=== PATIENT | male | born 1985 | race Caucasian/White ===

== ENCOUNTER 2024-09-26 07:29 | Emergency (ER) | payer SELFPAY ==
--- NOTE | ~2024-09-26 | CT_ITS ---
EXAMINATION: CT ANGIOGRAM CHEST CLINICAL INFORMATION: Chest pain. Evaluate for PE. COMPARISON: None available. TECHNIQUE: Multiple axial images were obtained through the chest after the administration of 65 mL of Omnipaque 350 intravenous contrast. Extensive vascular post-processing including two-dimensional and three-dimensional reformatted images were created and reviewed on an independent workstation. This CT examination was performed using dose optimization techniques as appropriate, variously including the following: *Automated exposure control *Adjustment of mA and/or kV according to patient size (this includes techniques or standardized protocols for targeted exams where dose is matched to indication/reason for exam; i.e. extremities or head) *Use of iterative reconstruction technique DLP: 346 mGy-cm FINDINGS: Vascular: There is good opacification of pulmonary artery and its branches.Intraluminal filling defect or narrowing. The thoracic aorta is of normal caliber without aneurysm or dissection. There is a normal three-vessel branching of the aortic arch with widely patent origins. Heart size is normal. No pericardial effusion seen. No coronary artery calcifications. Nonvascular: The lungs are well-expanded without any acute pneumonic consolidation, atelectasis or groundglass nodules. There is no pleural effusion, pneumothorax or thickening. The axilla and chest wall is unremarkable. Visualized liver, spleen, pancreas and bilateral adrenal glands are unremarkable. No radiopaque gallstones seen. There is a 2 cm hypodense lesion in left hepatic lobe. Otherwise rest the liver, spleen and adrenal glands are unremarkable.. CT/CT angio chest PE protocol IMPRESSION: No evidence of PE. No evidence of aortic aneurysm or dissection. The lungs are clear. Fleischner guidelines were followed. Electronically signed by: Rajinder Jauregui MD 09/26/2024 10:25 AM [facility]
--- NOTE | 2024-09-26 07:30 | ECG_ITS ---
Test Reason : CHEST PAIN Blood Pressure : / mmHG Vent. Rate : 076 BPM Atrial Rate : 076 BPM P-R Int : 174 ms QRS Dur : 088 ms QT Int : 386 ms P-R-T Axes : 054 069 063 degrees QTc Int : 434 ms Normal sinus rhythm Nonspecific T wave abnormality Abnormal ECG No previous ECGs available Referred By: Generic ED Physician Electronically Signed By:JONES FLAHERTY MD
[2024-09-26 07:42] VITALS: BP 122/86; PULSE 77; RESP 18; TEMP 36.4; O2SAT 100; BMI 28.3
[2024-09-26 08:00] LABS: MANUAL DIFF FLAG NO
[2024-09-26 08:01] LABS: Basophils Percent Auto 0.5 % (0-2); Eosinophils Absolute Auto 0.1 X10*3/uL (0.0-0.4); Eosinophils Percent Auto 1.2 % (0-4); Hematocrit 41.5 % (42.0-52.0); Imm Gran Abs Auto 0.02 X10*3/uL (0.00-0.03); Imm Gran Pct Auto 0.2 % (0.0-0.4); Lymphocytes Absolute Auto 2.7 X10*3/uL (1.2-4.9); Lymphocytes Percent Auto 32.6 % (20-40); Mean Corpuscular HGB Conc 36.1 g/dl (31.0-36.0); Mean Corpuscular Hemoglobin 30.4 pg (27.0-33.0); Mean Platelet Volume 10.8 fL (9.4-12.4); Monocytes Absolute Auto 0.8 X10*3/uL (0.1-1.2); Monocytes Percent Auto 9.6 % (2-11); Neutrophils Absolute Auto 4.6 x10*3/uL (2.0-8.3); Neutrophils Percent Auto 55.9 % (45-73); Platelet Count 244 X10*3/uL (160-400); Red Blood Count 4.94 X10*6/uL (4.60-5.80); Red Cell Distribution Width 12.6 % (11.0-16.0); White Blood Count 8.1 X10*3/uL (4.8-10.8)
--- NOTE | 2024-09-26 08:14 | ED.CHESTPAIN ---
HPI - Chest Pain General Chief Complaint: Chest Pain Stated Complaint: Chest pain Time Seen by Provider: 09/26/24 08:03 Source: patient Mode of arrival: ambulatory Limitations: no limitations History of Present Illness HPI narrative: This is a 38 years old presented to the emergency department with a chief complaint of chest pain. He is originally from [place] he is here locally for work. He is a smoker use marijuana occasionally he does not take any prescription medication. Chest pain is described as a sharp without radiation no exertional. Pain started about 2 hours ago. He states that he had chest pain as well in [place] he had the stress test which were negative per patient and he had Holter monitor also which was negative. MD complaint: chest pain Onset (ago): hour(s) (2) Onset: during rest Pain location: substernal Pain radiation: none Severity: mild Quality: aching Relieving factors: nothing Exacerbating factors: nothing Context: recent illness Risk Factors Coronary artery disease risk factors: smoking history Thoracic aortic dissection risk factors: none Related Data Allergies Allergy/AdvReac Type Severity Reaction Status Date / Time No Known Allergies Allergy Verified 09/26/24 07:46 Review of Systems Constitutional: Constitutional: Reports no additional constitutional complaints Cardiovascular: Cardiovascular: Reports chest pain Respiratory: Respiratory: Reports no additional respiratory complaints Gastrointestinal: Gastrointestinal: Reports no additional gastrointestinal complaints [facility] Past Medical History [facility] Narrative: Smoker/COPD Social History Social History Smoked in Last 30 Days: Yes Advance Directives: No Advance Directives Information Provided: Yes Do you have a plan to hurt others: No Plan Physical Exam Vital Signs: Vital Signs: Last Vital Signs Temp 98.4 F 09/26/24 13:07 Pulse 58 09/26/24 13:07 Resp 18 09/26/24 13:07 BP 135/82 09/26/24 13:07 Pulse Ox 98 09/26/24 13:07 O2 Del Method Room Air 09/26/24 13:07 BMI result Body Mass Index 28.3 Anxious looking not acute distress Const: General: cooperative and anxious Nutritional Appearance: average body habitus Orientation/consciousness: patient oriented x3 Limitations: no limitations HEENT: Head: Yes normal to inspection General nose exam: Normal external nose present Face and sinus: Yes normal facial exam Mouth: Normal oral and palatal mucosa present Throat: Yes posterior oropharynx normal Neck: Neck: Yes normal visual inspection Chest: Chest palpation & inspection: normal inspection of the chest Resp: Effort & Inspection: normal respiratory effort Auscultation: clear to auscultation bilaterally Cardio: Jugular venous distension: no JVD Rate: regular rate Rhythm: regular rhythm GI: Inspection: Yes normal to inspection Palpation (GI): Soft to palpation, not firm and nontender Skin: General skin exam: no rashes or lesions noted and elasticity normal Neuro: General: patient oriented x3 Course Reevaluation(s) Reevaluation #1: I re-examined the patient he is feeling much better, he has no pain right now, so far is CTA of the chest is negative no PE no dissection, #1 High sensitive troponin negative Time: 10:38 Reevaluation #2: #2 troponin negative Time: 11:05 Reevaluation #3: Remained asymptomatic his vital signs stable ACS has been ruled out by 2-high sensitive troponin, I did a bedside echo is wall motion is within normal limits no pericardial effusion, CT scan of the chest shows no PE no dissection at this time and it is reasonable to discharge the patient home he will follow-up with his primary care physician and he will return if worse Time: 12:39 Medications Administered Discontinued Medications Generic Name Dose Route Start Last Admin Trade Name Freq PRN Reason Stop Dose Admin Aspirin 324 mg 09/26/24 08:13 09/26/24 08:25 Aspirin 81 Mg Tab.Chew PO 09/26/24 08:14 324 mg ONCE ONE Administration Fentanyl 50 mcg 09/26/24 08:13 09/26/24 08:26 Fentanyl Citrate/Pf 100 Mcg/2 Ml Vial IVPUSH 09/26/24 08:14 50 mcg ONCE ONE Administration Protocol Iohexol 100 ml 09/26/24 09:54 09/26/24 09:55 Iohexol 350 Mg/Ml 100 Ml Infus..Btl IV 09/26/24 09:55 65 ml ONCE ONE Administration Medical Decision Making Medical Decision Making [facility] Narrative: Patient presented with chest pain sharp in nature we will do electrocardiogram I sensitive troponin Differential Diagnosis Differential Diagnoses: The differential diagnosis associated with the presentation includes ACS/PE/dissection/pneumothorax/musculoskeletal pain Admission/Observation Consideration of admission/observation: Escalation of care including admission/observation considered Lab Data [facility] Lab Attestation statement: I reviewed the patient's lab results. 09/26/24 07:55 09/26/24 07:55 Labs: Lab Results 09/26/24 09/26/24 Range/Units 07:55 10:23 WBC 8.1 (4.8-10.8) X10*3/uL RBC 4.94 (4.60-5.80) X10*6/uL Hgb 15.0 (14.0-18.0) g/dl Hct 41.5 L (42.0-52.0) % MCV 84.0 (80.0-98.0) fL MCH 30.4 (27.0-33.0) pg MCHC 36.1 H (31.0-36.0) g/dl RDW 12.6 (11.0-16.0) % Plt Count 244 (160-400) X10*3/uL MPV 10.8 (9.4-12.4) fL Immature Gran % (Auto) 0.2 (0.0-0.4) % Neut % (Auto) 55.9 (45-73) % Lymph % (Auto) 32.6 (20-40) % [place] % (Auto) 9.6 (2-11) % Eos % (Auto) 1.2 (0-4) % Baso % (Auto) 0.5 (0-2) % Lymph # (Auto) 2.7 (1.2-4.9) X10*3/uL [place] # (Auto) 0.8 (0.1-1.2) X10*3/uL Eos # (Auto) 0.1 (0.0-0.4) X10*3/uL Baso # (Auto) 0.0 (0.0-0.2) X10*3/uL Abs Immat Gran (auto) 0.02 (0.00-0.03) X10*3/uL Absolute Neuts (auto) 4.6 (2.0-8.3) x10*3/uL Absolute Nucleated RBC 0.000 (0.0-0.012) X10*3/uL Nucleated RBC % (auto) 0.0 (0.0-0.2) /100WBC Sodium 137 (135-145) mmol/L Potassium 4.0 (3.3-5.1) mmol/L Chloride 107 (96-108) mmol/L Carbon Dioxide 19 L (22-29) mmol/L Anion Gap 15 (12-20) BUN 18 H (9-16) mg/dL Creatinine 1.03 (0.5-1.4) mg/dL Estim Creat Clear Calc 114.8 Estimated GFR > 60 Random Glucose 116 H (60-115) mg/dL Calcium 9.4 (8.4-10.2) mg/dL Total Bilirubin 0.9 (0.0-1.0) mg/dL AST 56 H (5-37) U/L ALT 40 (0-40) U/L Alkaline Phosphatase 71 (39-117) U/L Troponin I High Sens < 2.7 < 2.7 (<3.5-35.0) ng/L Total Protein 7.8 (6.5-8.0) g/dL Albumin 4.5 (3.5-5.0) g/dL Independent Interpretation I performed an independent interpretation of an: EKG (EKG shows sinus rhythm rate [address]-T changes this is a normal electrocardiogram) Radiology Impression Discussion of test interpretation with radiology: I have reviewed the radiologist's reading. Radiologist Impression: Vascular: There is good opacification of pulmonary artery and its branches.Intraluminal filling defect or narrowing. The thoracic aorta is of normal caliber without aneurysm or dissection. There is a normal three-vessel branching of the aortic arch with widely patent origins. Heart size is normal. No pericardial effusion seen. No coronary artery calcifications. Nonvascular: The lungs are well-expanded without any acute pneumonic consolidation, atelectasis or groundglass nodules. There is no pleural effusion, pneumothorax or thickening. The axilla and chest wall is unremarkable. Visualized liver, spleen, pancreas and bilateral adrenal glands are unremarkable. No radiopaque gallstones seen. There is a 2 cm hypodense lesion in left hepatic lobe. Otherwise rest the liver, spleen and adrenal glands are unremarkable.. CT/CT angio chest PE protocol IMPRESSION: No evidence of PE. No evidence of aortic aneurysm or dissection. The lungs are clear. Fleischner guidelines were followed. Electronically signed by: Rajinder Jauregui MD 09/26/2024 10:25 AM [facility] Discharge Plan Discharge Clinical Impression: Chest pain Patient Disposition: Home, Self-Care Instructions: Chest Pain (DC) Additional Instructions: You should follow-up with your primar car physician, return to the emergency if you worse we are always here for you Interventions: ED Discharge Assessment Last Done: 09/26/24 13:07 Discharge Date/Time: 09/26/24 13:08 Print Language: Japanese
[2024-09-26 08:18] LABS: Alanine Aminotransferase 40 U/L (0-40); Albumin Level 4.5 g/dL (3.5-5.0); Alkaline Phosphatase 71 U/L (39-117); Anion Gap 15 (12-20); Aspartate Amino Transferase 56 U/L (5-37); Bilirubin Total 0.9 mg/dL (0.0-1.0); Blood Urea Nitrogen 18 mg/dL (9-16); Calcium 9.4 mg/dL (8.4-10.2); Carbon Dioxide 19 mmol/L (22-29); Chloride 107 mmol/L (96-108); Creatinine Clr Calc Pharmacy 114.8; Estimated Glomerular Filt Rate > 60; Glucose Random 116 mg/dL (60-115); Sodium 137 mmol/L (135-145); Total Protein 7.8 g/dL (6.5-8.0)
[2024-09-26 08:25] LABS: Troponin-I High Sensitivity < 2.7 ng/L (<3.5-35.0)
[2024-09-26] MEDS: Aspirin 81 MG TAB.CHEW 324 MG PO (08:25)
[2024-09-26] MEDS: fentaNYL citrate/PF 100 MCG/2 ML VIAL 50 MCG IVPUSH (08:26)
--- OUTSIDE RECORDS SUMMARY | 2024-09-26 08:51 | XMS_ITS | Data Portability ---
Author Organization [place] - Pulmonology, eep, Asthma & Allerg, [facility] - IP Address [address] [place] [address] Care Team Providers Care Outside Physical Damage Appraiser Name Role Phone MIMI FUENTES Referring Provider Assessment Encounter Date Assessment Date Assessment LastModified by Organization Details LastModified Time 04/05/2024 04/05/2024 Referral information reviewed. Chest CT arteriogram 02/23/2024 , impression: No demonstrated pulmonary embolism or arterial dissection. Mild emphysema. Minimal left basilar atelectasis and/or scarring. Treat as below. RTC in 2-3 weeks with PFTs. Pt is self pay - advised him he may make his next appt whenever financially feasible. [email or web address] Not available 04/06/2024 11:53:29 Plan of Treatment Reminders Order Date Submit Date Provider Last Modified By Organization Details Last Modified Time Details Appointments None recorded. Lab None recorded. Referral None recorded. Procedures None recorded. Surgeries None recorded. Imaging None recorded. Medication Orders albuterol sulfate HFA 90 mcg/actuat ion aerosol inhaler 2023 07 024 [id number], [address] [place], [address], 11:24:24 Patient TargetsNo targets recorded. Patient Instructions Encounter Date Encounter Id Patient Instructions Last Modified By Organization Details Last Modified Time 04/05/2024 [id number] During my clinical assessment today, I have reviewed the old records in the chart including but not limited to labs, images, and previous note. The chronic issues are relatively stable when compared to previous records. However, transition of disease is important and we may need ongoing assessments of the pulmonary issues. During today's visit, I have discussed all options to maximize treatments and have explained the importance of compliance as well as follow up. Pulmonary DDX was generated and important points were discussed at length. I have addressed all questions and as always, advised to go the ED if any life threatening issues arise or if symptoms are not well controlled. [email or web address] Not available 04/05/2024 10:55:13 Reason for Referral None Reported. Results Created Date Observation Date Name Description Value Unit Range Abnormal Flag Note LastModifiedBy Organization Detail LastModifiedTime 04/03/20 24 02/23/2024 CT, angio gram, chest , w/ contr ast No observ ation record ed. Not Available 2023 16:27:57 04/03/20 24 02/07/2024 XR, chest , 1 view No observ ation record ed. Not Available 2023 16:31:39 04/03/20 24 02/23/2024 US, echoc ardio gram No observ ation record ed. Not Available 2023 16:32:25 04/18/20 24 04/05/2024 6 minut e walk test* No observ ation record ed. [email or web address] Not Available 04/18 13:29:41 04/18/20 24 04/05/2024 adilson metry No observ ation record ed. [email or web address] Not Available 04/18 14:19:52 Result Notes None recorded. Procedures Surgical History Date Name Laterality Status Provider Name and Address Organization Details Recorded Time left inguinal herniotomy completed Misa [facility] - Pulmonology, Sleep, Asthma & Allerg 04/05/2024 10:35:20 Imaging Results Imaging Date Name Status LastModified by Organization Details LastModified Time 02/23/2024 CT, angiogram, chest, w/ contrast completed Information not available 04/03/2024 16:27:57 02/07/2024 XR, chest, 1 view completed Informa tion not available 04/03/2024 16:31:39 02/23/2024 US, echocardiogram completed Inform ation not available 04/03/2024 16:32:25 04/05/2024 6 minute walk test* completed Information not available 04/18/2024 13:29:41 04/05/2024 spirometry completed Information no t available 04/18/2024 14:19:52 Procedure Notes None recorded. Medical Equipment None Reported. Allergies No known drug allergies Medications Name Sig Start Date Stop Date Status Note LastModified by Organization Details LastModified Time meclizine 25 mg tablet TAKE 1 TABLET BY MOUTH 3 TIMES A DAY NEEDED FOR VERTIGO 04/05 completed Not Available Not Available Not Available dexamethaso ne 4 mg tablet TAKE 1 TABLET DAILY 04/05 completed Not Available Not Available Not Available albuterol sulfate HFA 90 mcg/actuati on aerosol inhaler Inhale 2 puffs every 4 hours by inhalatio n route. 2023 active Not Available Not Available Not Avai lable Vitals Date Recorded Body weight Body mass index (BMI) Body height Body temperature Oxygen saturation Oxygen saturation in Arterial blood by Pulse oximetry Heart rate Respiratory rate Systolic blood pressure Diastolic blood pressure Provider Name and Address Organization Details Last Updated DateTime 4 799827. 25 g 30.3 kg/m2 185.42 cm 97.7 [degF] 95 % 95 % 59 /min 18 /min 115 mm[Hg] 82 mm[Hg] Misa [facility] - Pulmonology, Sleep, Asthma & Allerg 10:44:23 Social History Question Answer Notes LastModified by Organizat ion Details LastModified Time Tobacco Smoking Status Current Every Day Smoker Misa [place], [place] - Pulmonology, Sleep, [facility] All[facility] 04/05/2024 10:36:43 Do You Have An Advance Directive? No Information not available 04/05/2024 Do You Have A Medical Power Of Automotive Lot Attendant? No Information not available 04/05/2024 What Was The Date Of Your Most Recent Tobacco Screening? 04/05/2024 Information not available 04/05/2024 How Much Tobacco Do You Smoke? 1 PPD Information not available 04/05/2024 How Many Years Have You Smoked Tobacco? 20 Information not available 04/05/2024 Sex: Unknown Functional Status None recorded. Mental Status None recorded. Family History Relationship Description Onset Age of this Age Resolved Age Notes LastModified by Organization Details LastModified Time Mother Chronic obstructive pulmonary disease [email or web address] Not available 2023 10:32:13 Mother Hypertensive disorder [email or web address] Not available 2023 10:32:37 Father Diabetes mellitus [email or web address] Not available 2023 10:32:51 Maternal Grandmother Heart disease selam Not available 2023 10:33:30 Notes:Joint-Maternal Grandmo ther Medical History Condition Response Allergies/Hayfever N Gout N Thyroid Disease N Emphysema N Hospital Admission Other Than N NSAID Use N Depression N Congenital Heart Disease N COPD N Pneumonia N Anemia N Multiple Sclerosis N Interstitial Lung Disease N Lung Mass N Sinusitis N Mental Illness N Cystic Fibrosis N Diabetes N Obesity N Arthritis N Seizures/Epilepsy N Blood Clot N Tuberculosis N AIDS/HIV N Acid Reflux (GERD) N Cancer N Stroke N Diverticulitis N Asthma N Sleep Apnea N High Cholesterol N Hepatitis N Liver Disease N Heart Disease N Bronchitis N Pulmonary Embolism N Hypertension N Osteoporosis N Kidney Disease N Past Encounters Encounter ID Performer Location Encounter Start Date Encounter Closed Date Diagnosis/Indication Diagnosis SNOMED-CT Code Diagnosis ICD10 Code [id number] Taina Kirk NP [facility] [address] [place] [address] 04/05/2024 10:10:01 04/06/2024 11:54:08 Pulmonary emphysema 30059646 J43.9 Tobacco de pendence, continuous 728896370 F17.290 Health Concerns Section Related Observation LastModified by Organization Detai ls LastModified Time None Recorded Concern Status LastModified by Organization Details LastModified Time None Recorded Advance Directives Directive N: Payers None recorded. Notes Date Note Type Note Provider Name and Address Organization Details Recorded Time 04/05/2024 text/html Chief Complaint TemplateReported bypatient.Quality:Shor tness of breath Severity:mild Duration:2 years Onset/Timin-3 times a week Context:occurs with activity; Heat Alleviating factors:rest Aggravating factors:weather: hot Location:chest Mr. Bird is a 38-year-old male patient referred by Cardiology for emphysema. Past medical, surgical and social history reviewed - bradycardia, hernia surgery 2007. He underwent a stress test that was normal. He also had a chest CT arteriogram with no evidence of PE, but mild emphysema.He is a current smoker-reports smoking 1 pack per day, 20 pack-year history.Denies significant family history. Pt reports SOB with exertion. Also when exposed to heat. Improved with rest. No cough, wheezing. He does have intermittent chest pain for which he sees cardiology. Denies frequent respiratory infections. No hemoptysis or unitnentional weight loss. Taina Kirk NP [address] [place], [address], [facility] - Pulmonology, Sleep, Asthma & Allerg 04/06/2024 11:54:05
--- OUTSIDE RECORDS SUMMARY | 2024-09-26 08:51 | XMS_ITS | Continuity of Care Document ---
Author Organization [facility]. If a dditional information is needed, contact Health Information Management at [phone] Address [address] [place] [address] Phone Care Team Providers Care Thin Film Technician Name Role Phone Unavailable Unavailable Unavailable Unavailable Unavailable Unavailable Unavailable Unavailable Unavailable Unavailable Unavailable Unavailable Unavailable Unavailable Unavailable Unavailable Unavailable Unavailable Unavailable Unavailable Unavailable Unavailable Unavailable Unavailable Unavailable Unavailable Unavailable Unavailable Unavailable Unavailable Unavailable Unavailable Unavailable Unavailable Unavailable Unavailable Unavailable Unavailable Unavailable Unavailable Unavailable Unavailable Unavailable Unavailable Problems Foreign body of eye region Onset:17-Apr-2024 Bill Landaverde CASTING TESTER Chest pain Onset:28-Jan-2024 Loki Adams CASTING TESTER Bradycardia Onset:28-Jan-2024 Loki Adams CASTING TESTER Allergies and Adverse Reactions No Known Allergies(Allergy) Onset: 28-Jan-2024 Medications fluorescein sodium;1 STRIP X1ED Quantity:1 Rico Guerrero MD Start:94-Fbg-0075Iil:2023 Comments:[id number] tetracaine hydrochloride 5 MG/ML Ophthalmic Solution;1 DROP X1ED Quantity:1 Rico Guerrero MD Start:50-Thy-5455Jzk:2023 Comments:[id number] 50 ML sodium chloride 9 MG/ML Injection;[id number] Milly Carlton MD Start:15-Aas-9970Khq: Status:Discontinued Comments:[id number] sodium chloride 9 MG/ML Injectable Solution;10 MILLILITER ASDIR Quantity:1 Milly Carlton MD Start:54-Bgo-2329Ekp: Status:Discontinued Comments:[id number] Administration Instructions:INT FLUSH iopamidol;100 MILLILITER ONCE Quantity:1 Milly Carlton MD Start:82-Qfp-6683Vjb: Status:Discontinued Comments:[id number] aspirin 325 MG Oral Tablet;325 MILLIGRAM X1ED Quantity:1 Ryne Bailey MD Start:26-Iib-3179Jkh:07-Feb-2024 Comments:[id number] Administration Instructions:NOT AN ANTICOAGULANT sodium chloride 9 MG/ML Injectable Solution;[id number] Geoffrey Real MD (Drew) Start:3-Xfk-0315Kjd:28-Jan-2024 Comments:[id number] aspirin 325 MG Oral Tablet;325 MILLIGRAM X1ED Quantity:1 Geoffrey Real MD (Drew) Start:4-Bdm-5745Dqs:28-Jan-2024 Comments:[id number] Administration Instructions:NOT AN ANTICOAGULANT Procedures CT ARTERIOGRAM CHESTResult:[facility] Name: CLARIBEL BRAND [address] Phys: Laron Atkins MD [address] : 1985 Age: 38 Sex: Akhil Rosi, [place] [address] Acct: [id number] Loc: [place] PHONE #: Exam Date: 02/23/2024 Status: REG CLI FAX #: Radiology No: Unit No: [id number] EXAMS: CPT CODE: [id number] CT Arteriogram Chest 86642 STUDY: CTA CHEST REASON FOR EXAM: Male, 38 years old. CP, DYSPNEA DYSPNEA, CP; BRADYCARDIA RADIATION DOSAGE (If Supplied By Facility): CTDIvol = ( ) mGy, DLP = ( ) mGycm TECHNIQUE: The examination was performed with the intravenous administration of 100ml isovue 370. Post-processing of the angiographic images was performed, with multiplanar reformation and 3D reconstruction. The protocol utilizes one or more of the following dose reduction techniques: automated exposure control, adjustment of mA and/or kV according to patient size,and/or use of iterative reconstruction technique. COMPARISON: No relevant prior comparison study available FINDINGS: Normal enhancement of the main pulmonary artery and right and left pulmonary arteries. Normal enhancement of the bilateral peripheral pulmonary arteries. There is no demonstrated pulmonary embolism. Normal thoracic aorta and visualized great vessels. There is no demonstrated aortic dissection. Normal heart and pericardium. There are no coronary artery calcifications. Normal mediastinum. Normal hilar regions. Normal visualized trachea and bronchi. There are mild bilateral emphysematous changes. There is minimal left basilar atelectasis and/or scarring. Normal chest wall structures. Normal osseous structures. Normal visualized upper abdomen. PAGE 1 Signed Report (CONTINUED) [facility] PATIENT IMAGING Name: CLARIBEL BRAND [address] Phys: Laron Atkins MD [address] : 1985 Age: 38 Sex: [place] [address] Acct: [id number] Loc: F.OPICT PHONE #: Exam Date: 02/23/2024 Status: REG CLI FAX #: Radiology No: Unit No: [id number] EXAMS: CPT CODE: [id number] CT Arteriogram Chest 64660 <Continued> IMPRESSION: No demonstrated pulmonary embolism or arterial dissection. Mild emphysema. Minimal left basilar atelectasis and/or scarring. at 0843 Reported and signed by: Kimmy Massey M.D. CC: Laron Atkins MD; Veronica Marrero NP Technologist: RT BRIAN(R) Transcribed Date/Time: 02/23/2024 (0843)Prepared By: SUSU Printed Date/Time: 02/23/2024 (0844) BATCH NO: N/A PAGE 2 Signed Report Date:23-Feb-2024 Status:Completed CHEST AP PORTResult:[facility] Name: CLARIBEL BRAND [address] Phys: [place] [address] : 1985 Age: 38 Sex: M Acct: [id number] Loc: F.ER PHONE #: Exam Date: 02/07/2024 Status: REG ER FAX #: Radiology No: Unit No: [id number] EXAMS: CPT CODE: [id number] Chest AP Port [id number] HISTORY: Chest pain. TECHNIQUE: XR Chest 1 View. COMPARISON: 01/28/2024. FINDINGS: CARDIOMEDIASTINAL BORDERS: Cardiac silhouette within normal limits in size. Mediastinal contour unremarkable. LUNGS: Chronic linear scarring in the left midlung. PLEURA: No pleural effusion or pneumothorax seen. OSSEOUS STRUCTURES: Unremarkable. IMPRESSION: No acute cardiopulmonary process identified. at 0932 Reported and signed by: TAHIR BOGGS M.D. CC: Jasmyn Michele MD Technologist: RT TAVARES(Cesar) Transcribed Date/Time: 02/07/2024 (931)Prepared By: SUSU Printed Date/Time: 02/07/2024 (932) BATCH NO: N/A PAGE 1 Signed Report Date:07-Feb-2024 Status:Completed CHEST AP PORTResult:[facility] Name: CLARIBEL BRAND [facility] [address] Phys: Jin [place]) [place] [address] : 1985 Age: 38 Sex: M Acct: [id number] Loc: F.ER PHONE #: Exam Date: 01/28/2024 Status: REG ER FAX #: Radiology No: Unit No: [id number] EXAMS: CPT CODE: [id number] Chest AP Port [id number] HISTORY: Chest pain. TECHNIQUE: XR Chest 1 View. COMPARISON: None. FINDINGS: CARDIOMEDIASTINAL BORDERS: Cardiac silhouette within normal limits in size. Mediastinal contour unremarkable. LUNGS: Minimal linear scarring or atelectasis in the left midlung. PLEURA: No pleural effusion or pneumothorax seen. OSSEOUS STRUCTURES: Unremarkable. IMPRESSION: No acute cardiopulmonary process identified. at 0836 Reported and signed by: TAHIR BOGGS M.D. CC: Jin Hale MD (Drew) Technologist: AMBERLY IRAHETA, RT(R); RT TAMANNA(R) Transcribed Date/Time: 01/28/2024 (0836)Prepared By: SUSU Printed Date/Time: 01/28/2024 (0837) BATCH NO: N/A PAGE 1 Signed Report Date:28-Jan-2024 Status:Completed Social History Smoking Status Smokes tobacco daily Recorded: 17-Apr-2024 Smokes tobacco daily Recorded: 07-Feb-2024 Smokes tobacco daily Recorded: 28-Jan-2024 Results TROPONIN I Ordered On:07-Feb-2024 11:28 TROPONIN I< 0.012ng/mL Range:0 -0.034ng/mL CBC AUTO DIFF Ordered On:07-Feb-2024 09:13 BASOPHIL #0.110*3/uL(Normal) R cristian:010*3/uL-0.110*3/uL BASOPHIL %1.1% EOSINOPHIL #0.310*3/uL(Normal) R critsian:010*3/uL-0.510*3/uL EOSINOPHIL %3.3% GSBUNSZLMT54.9%(Normal) Range:35 .8%-52.9% HCOLCQPIJN36.4g/dL(Normal) Range :12g/dL-17.5g/dL LYMPHOCYTE #2.710*3/uL(Normal) R cristian:0.910*3/uL-3.810*3/uL LYMPHOCYTE %31.3% MEAN CELL HGB30.2pg(Normal) Rang e:26.6pg-34.5pg MEAN CELL HGB PDPCTGYXTQQIM33.7%(Normal) Range:32.1%-35.5% MEAN CELL DPSWJP53.6fL(Normal) R cristian:81.2fL-99.8fL MONOCYTE #0.610*3/uL(Normal) Ran ge:0.210*3/uL-0.910*3/uL MONOCYTE %6.8% MEAN PLATELET VOLUME9.1fL(Normal) Range:6.8fL-10.7fL NEUTROPHIL #4.910*3/uL(Normal) R cristian:1.910*3/uL-7.310*3/uL NEUTROPHIL %57.5% PLATELET YOZDZ187{K/cmm}(Normal) Range:139{K/cmm}-358{K/cmm} RED BLOOD CELL5.45{MIL/mm}(Normal) Range:3.92{MIL/mm}-5.83{MIL /mm} RED CELL DISTRIBUTIO N WIDTH13.6%(Normal) Range:12.4%-16.2% WHITE BLOOD CELL8.5{K/cmm}(Normal) Range:3.8{K/cmm}-10.7{K/cmm } PROTHROMBIN TIME WITH INR Ordered On:07-Feb-2024 09:30 INTERNATIONAL NORMAL RATIO1.02{ratio}(Normal) Range:0.86{ratio}-1.14{rati o} PROTHROMBIN TIME OTSWSFC30.5s(Normal) Range:9.9s-13.3s PARTIAL THROMBOPLASTIN TIME Ordered On:07-Feb-20 09:30 PTT VQKXDRK53.7s(Normal) Range :26.2s-37.2s COMPREHENSIVE METABOLIC PROF Ordered On:07-Feb-2024 09:40 ALBUMIN/GLOBULIN RATIO0.9 ALBUMIN5.2g/dL(High) Range:3.5g/ dL-5g/dL ALKALINE CXHCYIMHGQK55V/L(Normal) Range:38U/L-126U/L ALT (SGPT)18U/L(Low) Range:21U/L -72U/L AST (SGOT)47U/L(Normal) Range:17 U/L-59U/L BILIRUBIN TOTAL1.4mg/dL(High) Ra nge:0.2mg/dL-1mg/dL BUN/CREATININE RATIO10{(CALC)} BLOOD UREA BCTADDPL70gw/dL(Normal) Range:9mg/dL-20mg/dL VNMUCGF41.0mg/dL(Normal) Range:8 .4mg/dL-10.2mg/dL SFWEMKUS841mamk/L(Normal) Range: 98mmol/L-107mmol/L CARBON JMOHHVJ39pgii/L(Low) Rang e:22mmol/L-30mmol/L CREATININE1.10mg/dL(Normal) Rang e:0.66mg/dL-1.25mg/dL GFR RACE AJJXGNVGCJI93 Range:>=6 0 Comments:The eGFR is calculated using the 2020 CKD-EPI Cr equation,which includes serum Cr, age, and sex but does not include arace coefficient. The National Kidney Foundation recommendsthis formula for calculation eGFR in adults. GFR will notcalculate if sex is unknown or patient age is <18 years.Ref range: >/=60 mL/min/1.73 m2 GLOBULIN5.5g/dL FNYYEHO27fb/dL(Normal) Range:74m g/dL-106mg/dL POTASSIUM5.8mmol/L(High) Range:3 .5mmol/L-5.1mmol/L MKFAMA223lorb/L(Low) Range:137mm ol/L-145mmol/L TOTAL YJRDUMZ51.7g/dL(High) Rang e:6.3g/dL-8.2g/dL NT PRO BRAIN NATRIURETIC PEP Ordered On:07-Feb-2024 09:56 NT PRO BRAIN NATRIUR ETIC PEP99.6pg/mL(Normal) Range:0pg/mL-200pg/mL TROPONIN I Ordered On:07-Feb-2024 09:56 TROPONIN I< 0.034ng/mL Range:0 -0.034ng/mL TROPONIN I Ordered On:28-Jan-2024 10:53 TROPONIN I< 0.012ng/mL Range:0- 0.034ng/mL UA WITH REFLEX CULTURE Ordered On:28-Jan-2024 Com ments:Indication for culture: RiskForSepsis-no oth srcSpecimen Description: CLEAN CATCHPATIENT IN BATHROOM [[id number] 01/28/24 0940] 28-Jan-2024 09:53 UA APPEARANCECLEAR Range:CLEAR UA BILIRUBIN DIPSTICKNEGATIVEmg/dL Range:NEGATIVE MG/DL UA BLOOD DIPSTICKNEGATIVE Range: NEGATIVE UA COLORSTRAW Range:YELLOW UA GLUCOSE DIPSTICKNEGATIVEmg/dL Range:NEGATIVE MG/DL UA KETONE DIPSTICKNEGATIVEmg/dL Range:NEGATIVE MG/DL UA LEUKOCYTE ESTERAS E DIPSTICKNEGATIVE Range:NEGATIVE UA NITRITE DIPSTICKNEGATIVE Rang e:NEGATIVE UA PH DIPSTICK7.0(Normal) Range: 5-8.5 UA PROTEIN DIPSTICKNEGATIVEmg/dL Range:NEGATIVE MG/DL UA SPECIFIC GRAVITY1.012(Normal) Range:1.001-1.035 UA UROBILINOGEN DIPSTICKNEGATIVEmg/dL Range:NEGATIVE MG/DL URINE DRUG SCREEN QUALITATIVE Ordered On:28-Jan-2024 Comments:PATIENT IN BATHROOM [[id number] 01/28/24 0940] 28-Jan-2024 10:11 UR AMPHETAMINENEGATIVE Range:NE GATIVE UR BARBITURATE QUALNEGATIVE Rang e:NEGATIVE UR BENZODIAZEPINE QUALNEGATIVE R cristian:NEGATIVE UR COCAINENEGATIVEng/mL Range:NE GATIVE ng/ml UR OPIATES QUALNEGATIVE Range:NE GATIVE UR PHENCYCLIDINE (PC P) QUALNEGATIVE Range:NEGATIVE UR CANNABINOIDS (THC)POSITIVE(Abnormal) Range:NEGATIVE Comments: These drug assays have the following sensitivity:Cannabinoids - 50 ng/ml;barbiturates and benzodiazepines - 200 ng/ml;cocaine - 150 ng/ml;amphetamines - 500 ng/ml;opiates - 300 ng/ml;phencyclidine - 25 ng/ml CBC AUTO DIFF Ordered On:28-Jan-2024 07:52 BASOPHIL #0.110*3/uL(Normal) Ra nge:010*3/uL-0.110*3/uL BASOPHIL %1.1% EOSINOPHIL #0.310*3/uL(Normal) R cristian:010*3/uL-0.510*3/uL EOSINOPHIL %4.0% DBLRIJKVVP84.3%(Normal) Range:35 .8%-52.9% HEHOTKRCQY58.6g/dL(Normal) Range :12g/dL-17.5g/dL LYMPHOCYTE #2.810*3/uL(Normal) R cristian:0.910*3/uL-3.810*3/uL LYMPHOCYTE %33.9% MEAN CELL HGB30.9pg(Normal) Rang e:26.6pg-34.5pg MEAN CELL HGB NQSYJRZVGUSHT33.3%(Normal) Range:32.1%-35.5% MEAN CELL LXQCIB10.7fL(Normal) R cristian:81.2fL-99.8fL MONOCYTE #0.610*3/uL(Normal) Ran ge:0.210*3/uL-0.910*3/uL MONOCYTE %7.5% MEAN PLATELET VOLUME8.9fL(Normal) Range:6.8fL-10.7fL NEUTROPHIL #4.510*3/uL(Normal) R cristian:1.910*3/uL-7.310*3/uL NEUTROPHIL %53.5% PLATELET SNQJL229{K/cmm}(Normal) Range:139{K/cmm}-358{K/cmm} RED BLOOD CELL5.05{MIL/mm}(Normal) Range:3.92{MIL/mm}-5.83{MIL /mm} RED CELL DISTRIBUTIO N WIDTH13.5%(Normal) Range:12.4%-16.2% WHITE BLOOD CELL8.4{K/cmm}(Normal) Range:3.8{K/cmm}-10.7{K/cmm } COMPREHENSIVE METABOLIC PROF Ordered On:28-Jan-2024 08:14 ALBUMIN/GLOBULIN RATIO1.1 ALBUMIN4.6g/dL(Normal) Range:3.5 g/dL-5g/dL ALKALINE MVAOFLATFWH06U/L(Normal) Range:38U/L-126U/L ALT (SGPT)18U/L(Low) Range:21U/L -72U/L AST (SGOT)32U/L(Normal) Range:17 U/L-59U/L BILIRUBIN TOTAL0.8mg/dL(Normal) Range:0.2mg/dL-1mg/dL BUN/CREATININE RATIO12{(CALC)} BLOOD UREA PGWWYNZE32pt/dL(Normal) Range:9mg/dL-20mg/dL CALCIUM9.7mg/dL(Normal) Range:8. 4mg/dL-10.2mg/dL ATFBLZMK445javn/L(High) Range:98 mmol/L-107mmol/L CARBON BJYFRSL55cmgv/L(Low) Rang e:22mmol/L-30mmol/L CREATININE1.00mg/dL(Normal) Rang e:0.66mg/dL-1.25mg/dL GFR RACE PNYGCXFBBNK42 Range:>=6 0 Comments:The eGFR is calculated using the 2020 CKD-EPI Cr equation,which includes serum Cr, age, and sex but does not include arace coefficient. The National Kidney Foundation recommendsthis formula for calculation eGFR in adults. GFR will notcalculate if sex is unknown or patient age is <18 years.Ref range: >/=60 mL/min/1.73 m2 GLOBULIN4.3g/dL VIYQOZM051dc/dL(High) Range:74mg /dL-106mg/dL POTASSIUM4.9mmol/L(Normal) Range :3.5mmol/L-5.1mmol/L NGZNXK151zeno/L(Normal) Range:13 7mmol/L-145mmol/L TOTAL PROTEIN8.9g/dL(High) Range :6.3g/dL-8.2g/dL TROPONIN I Ordered On:28-Jan-2024 08:19 TROPONIN I< 0.012ng/mL Range:0- 0.034ng/mL PROTHROMBIN TIME WITH INR Ordered On:28-Jan-2024 08:36 INTERNATIONAL NORMAL RATIO0.99{ratio}(Normal) Range:0.86{ratio}-1.14{rati o} PROTHROMBIN TIME JWPSMKO96.2s(Normal) Range:9.9s-13.3s PARTIAL THROMBOPLASTIN TIME(Pending) Ordered On:28-Jan-2024 08:36 PTT PATIENTs Range:26.2s-37. 2s Vital Signs 17-Apr-2024 09:12 Respiratory Rate16 Comments:16 Height6.17304512[ft_us] Comments :6 Drrwgj354.545kg Comments:104.545 17-Apr-2024 09:12 BMI30.4kg/m2 Comments:30.4 17-Apr-2024 09:05 TEMP DFQHNRX41.6c Comments:36.6 Pulse51 Comments:51 O2 SAT98% Comments:98 BP Ehsovhtl268nd[Hg] Comments:13 6 BP Anlgwrxxr17oh[Hg] Comments:90 17-Apr-2024 09:05 TEMP JZIEALF94.6c Comments:36.6 Pulse51 Comments:51 O2 SAT98% Comments:98 BP Lgzhauho672at[Hg] Comments:13 6 BP Ojyblsjoj73dc[Hg] Comments:90 07-Feb-2024 12:24 Pulse43 Comments:43 O2 SAT97% Comments:97 BP Mlmuxoze646pi[Hg] Comments:14 1 BP Dckvgrmrb82de[Hg] Comments:84 07-Feb-2024 11:44 Pulse47 Comments:47 O2 SAT98% Comments:98 BP Pssumrnw931sm[Hg] Comments:13 2 BP Yzlawykjb50ee[Hg] Comments:90 07-Feb-2024 10:51 Pulse42 Comments:42 O2 QSW411% Comments:100 BP Ijdprbal650zi[Hg] Comments:15 9 BP Rwbcbnrkc65vl[Hg] Comments:90 07-Feb-2024 10:06 Pulse51 Comments:51 O2 SAT97% Comments:97 BP Xzftzqqw564rc[Hg] Comments:15 9 BP Yiqvcgkxa63rc[Hg] Comments:96 07-Feb-2024 09:35 Pulse50 Comments:50 O2 SAT98% Comments:98 BP Zhndfngd226nu[Hg] Comments:15 0 BP Pnlzdikrl71yq[Hg] Comments:93 07-Feb-2024 08:52 TEMP CZIJXTB54.1c Comments:36.1 Pulse47 Comments:47 Respiratory Rate16 Comments:16 O2 SAT99% Comments:99 BP Rfukcxhd814tl[Hg] Comments:16 1 BP Vhphbhvka16ni[Hg] Comments:95 Height6.62892327[ft_us] Comments :6 Wonbna182.8kg Comments:101.800 07-Feb-2024 08:52 BMI29.6kg/m2 Comments:29.6 28-Jan-2024 11:41 Pulse49 Comments:49 Respiratory Rate18 Comments:18 O2 SAT98% Comments:98 BP Xlcsjroc919aq[Hg] Comments:14 9 BP Rqwaoxalr21zl[Hg] Comments:96 28-Jan-2024 10:51 Pulse39 Comments:39 28-Jan-2024 07:52 O2 DCC730% Comments:100 28-Jan-2024 07:50 TEMP ZJEBOML36i Comments:37.0 Pulse51 Comments:51 Respiratory Rate18 Comments:18 O2 SAT99% Comments:99 BP Bmiytloc981kj[Hg] Comments:15 4 BP Gfuwxmdez35gt[Hg] Comments:95 Height5.0488679[ft_us] Comments: 5 Mgyvef18.909kg Comments:90.909 28-Jan-2024 07:50 BMI30.4kg/m2 Comments:30.4 Encounters Emergency Encounter Reason:METAL IN R EYE Encounter Diagnosis:Nicotine dependence, unspecified, uncomplicated,UNSPECIFIED FOREIGN BODY ENTERING VIA NATURAL ORIFICE, INIT,Foreign body on external eye, part unspecified, right eye, initial encounter 17-Apr-2024 08:69Cm29-Vdf-2861 09:53 [facility] Discharge Disposition:Discharged to home or self care (routine discharge) ? ? ? Bill Landaverde UH-97-Xsm17-Apr-2024 [facility])EMERGENCY PROVIDER REPORTREPORT#:[id number] REPORT STATUS: SignedDATE:04/17/24 TIME: 821PATIENT: CLARIBEL BRAND UNIT #: [id number]#: [id number] ROOM/BED:AGE: 38 SEX: M PCP PHYS: Veronica Marrero NPSERVICE AUTHOR: Lillie Khan ARNPREP SRV REP SRV TM: 0822* ALL edits or amendments must be made on the electronic/computer document *HPI-Eye ProblemGeneralConfirmed Patient YesInitial Greet Date/Time 04/17/24 0811PCPDENIESPresentationChief Complaint PT TO ER WITH C/O POSSIBLE METAL IN RIGHT EYE. HE WAS GRINDINGMETAL AND FELT A PIECE HIT RIGHT EYE. HE WASHED IT OUT BUT DOESN'T FEEL ANYBETTER. WASN'T WEAR GLASSES. NO OTHER S/S. DOESN'T WEAR CONTACTS. NO VISIONLOSS.Hx Obtained From PatientOnset Occurred TodayPain/Sev: Current Pain level 8 out of 10Risk-Eye ProblemRisk Stratification)( Eye Injury - Adult Risk factors reviewedReview of SystemsROS StatementsAll systems rev neg except as marked.Focused Review of SystemsEyesReports: Eye pain R.Past Medical History - AdultStated Complaint METAL IN R EYEAllergiesCoded Allergies:No Known Allergies (01/28/24)Review of Nursing Notes Rev avail, and agreeAdditional Medical HistoryEMPHYSEMAPast Surgical History:Reports: Hernia repair.Smoking status for patients 13 years old or older: Current every day smokerAmbulatory Status IndependentPhysical ExamVital SignsVital SignsFirst Documented: Result Date Time Pulse Ox 98 04/17 0905 B/P 136/90 04/17 0905 B/P Mean 105.2 04/17 0905 Temp 97.9 04/17 0905 Pulse 51 04/17 0905 O2 Delivery Room air 04/17 912 Resp 16 04/17 912Last Documented: Result Date Time O2 Delivery Room air 04/17 0912 Resp 16 04/17 912 Pulse Ox 98 04/17 0905 B/P 136/90 04/17 0905 B/P Mean 105.2 04/17 0905 Temp 97.9 04/17 0905 Pulse 51 04/17 0905Review of Vital Signs ReviewedBasic Physical ExamBasic PE GEN: Well appearing/NAD, RESP: No resp distress, CV: Reg rate rhythm,NEURO: alert oriented, NEURO: gross movement NLFocused PEEyes Eyes Atraumatic, PERRL, EOMI, No nystagmus, No periorbital redness, Noperiorbital swelling Cornea/Ant Chamber Negative: Abrasion R, Fluorescein uptake R, Foreign body R. Conjunctiva/Sclera Injected R (MINIMAL).Re-Evaluation MDMFree Text MDM NotesFree Text MDM NotesPT STATES WHILE WAITING, HE FELT THAT THE PARTICLE CAME OUT OF EYE. NO FOREIGNBODY SEEN DURING EXAM. PT REPORTS IT FEELS BETTER. MILD SCLERAL INJECTION. WILLTREAT WITH ERYTHROMYCIN. FOLLOW UP WITH EYE DOCTOR OR RETURN IF WORSENING. PTVERBALIZED UNDERSTANDING.ED CourseMedication(s) OrderedMedication(s) Ordered:Diagnostic Agents Sig/Ivonne Start time Last Medication Dose Route Stop Time Status Admin Fluorescein Sodium 1 STRIP X1ED ONE 04/17 815 DC 04/17 RIGHT EYE 04/17 08 0918Eye, Ear, Nose And Throat (Een Sig/Ivonne Start time Last Medication Dose Route Stop Time Status Admin Tetracaine HCl 1 DROP X1ED ONE 04/17 0815 DC 04/17 RIGHT EYE 04/17 816 0919Differential Diagnosis)( Differential Diagnosis Corneal abrasion, Foreign body, conjunctiva, Foreignbody, cornealPatient Discharge DepartureVital Signs/ConditionVital SignsFirst Documented: Result Date Time Pulse Ox 98 04/17 0905 B/P 136/90 04/17 0905 B/P Mean 105.2 04/17 905 Temp 97.9 04/17 0905 Pulse 51 04/17 0905 O2 Delivery Room air 04/17 912 Resp 16 04/17 912Last Documented: Result Date Time O2 Delivery Room air 04/17 912 Resp 16 04/17 912 Pulse Ox 98 04/17 0905 B/P 136/90 04/17 0905 B/P Mean 105.2 04/17 0905 Temp 97.9 04/17 0905 Pulse 51 04/17 0905All vital signs available at the time of this entry have been reviewed.Condition StableClinical ImpressionClinical ImpressionPrimary Impression: Foreign body of right eyeDisposition DecisionDischarge )( Discharged to Home Yes )( Time 0940 )( Date 04/17/24Discharge/Care PlanCounseled Regarding Diagnosis, Prescriptions, Need for follow-up, When to returnto ED(Auto) PrescriptionsCurrent Visit ScriptsERYTHROMYCIN 0.5% 1 APPLIC OD TID ERYTHROMYCIN 0.5% 1 APPLIC OD TID #1 GM Attending: Dr. Jah Gómez [id number] Reviewed Risks, Benefits, Alternative treatmentPatient Instructions ED Particle in the EyeReferralsProvider Referral: Veronica Marrero CASTING TESTER Address: [address] [place] [address] Discharge NoteI have spoken with the patient and/or caregivers. I have explained the patient'scondition, diagnoses and treatment plan based on the information available to meat this time. I have answered the patient's and/or caregiver's questions andaddressed any concerns. The patient and/or caregivers have as good anunderstanding of the patient's diagnosis, condition and treatment plan as can beexpected at this point. The vital signs have been stable. The patient'scondition is stable and appropriate for discharge from the emergency department.The patient will pursue further outpatient evaluation with the primary carephysician or other designated or consulting physician as outlined in thedischarge instructions. The patient and/or caregivers are agreeable to this planof care and follow-up instructions have been explained in detail. The patientand/or caregivers have received these instructions in written format and haveexpressed an understanding of the discharge instructions. The patient and/orcaregivers are aware that any significant change in condition or worsening ofsymptoms should prompt an immediate return to this or the closest emergencydepartment or a call to 911. at 0945 at 1542RPT #: [id number] OF REPORT Ambulatory Encounter Reason:BRADYCARDIA Encounter Diagnosis:Rheumatic disorders of both mitral and tricuspid valves,Other fatigue,Bradycardia, unspecified,Dizziness and giddiness,Other chest pain,Nicotine dependence, cigarettes, uncomplicated,Snoring,Emphysema, unspecified 23-Feb-2024 07:74Tm20-Uwl-2016 07:24 [facility] Discharge Disposition:Discharged to home or self care (routine discharge) Emergency Encounter Reason:CHEST PAIN Encounter Diagnosis:Nicotine dependence, unspecified, uncomplicated,Other chest pain 07-Feb-2024 08:04Rx63-Otc-0791 12:23 Ryne Palma MD (Attending) [facility] Discharge Disposition:Discharged to home or self care (routine discharge) ? ? ? Bill Landaverde EI-13-Hlu07-Feb-2024 [facility])EMERGENCY PROVIDER REPORTREPORT#:[id number] REPORT STATUS: SignedDATE:02/07/24 TIME: 0858PATIENT: CLARIBEL BRAND UNIT #: [id number]#: [id number] ROOM/BED:AGE: 38 SEX: M PCP PHYS: Veronica Marrero NPSERVICE AUTHOR: Lillie Khan SRV REP SRV TM: 0858* ALL edits or amendments must be made on the electronic/computer document *LILLIE KHAN 02/07/24 0858:HPI-Chest Pain Under 40GeneralConfirmed Patient YesInitial Greet Date/Time 02/07/24 0832PCPDENIESPresentationChief Complaint PT PRESENTS TO ER WITH C/O CHEST PAIN. PT STATES CHEST PAIN ISINTERMITTENT FOR THE PAST 2+ WEEKS. HE HAS BEEN IN ER FOR SAME AND SAW TORRIIPS THIS PAST WEDNESDAY. HE IS PENDING STRESS TEST AND HEART MONITOR SET UP.THEY ARE SUPPOSED TO HEAR BACK FOR SCHEDULING BEFORE WEDNESDAY OF THIS WEEK.SINCE STILL HURTING HE WANTED TO COME BACK HERE. HAS NAUSEA AT TIMES, NOVOMITING. HE HAS SOB AT TIMES, HE DOES SMOKE. DENIES DIAPHORESIS. NO WEAKNESSWITH ACTIVITY. SOB AND PAIN IS NOT WORSE WITH EXERTION.Hx Obtained From PatientOnset Occurred Weeks agoSymptom Duration Waxes and wanes)( Migration/Movement NonePain/Sev: Current Pain level 8 out of 10Risk-Chest Pain Under 40Risk Stratification)( Coronary Artery Disease Risk factors reviewed)( Pulmonary Embolism Risk factors reviewed)( AMI-Aspirin Aspirin Last 24 Hrs None)( HEART for MACE )( HEART for MACE Response Value History Low index of suspicion 0 ECG Interpretation Normal ECG 0 Age Age under 45 0 Risk Factors for CAD 1-2 CAD risk factors 1 Troponin < or = to NL troponin 0 Total 1Review of SystemsROS StatementsAll systems rev neg except as marked.Focused Review of SystemsCardiovascularReports: Chest pain.Past Medical History - AdultStated Complaint CHEST PAINAllergiesCoded Allergies:No Known Allergies (01/28/24)Home MedicationsReported MedicationsNo Known Home MedicationsReview of Nursing Notes Rev avail, and agreePt reports no significant: Past medical historyAdditional Medical HistoryDENIESPast Surgical History:Reports: Hernia repair.Smoking status for patients 13 years old or older: Current every day smokerAmbulatory Status IndependentPhysical ExamVital SignsVital SignsFirst Documented: Result Date Time Pulse Ox 99 02/06 0850 B/P 161/95 / 0850 B/P Mean 117 02/06 0850 O2 Delivery Room air 02/06 0850 Temp 97.0 02/06 0850 Pulse 47 02/06 0850 Resp 16 02/06 0850Last Documented: Result Date Time Pulse Ox 97 / 1200 B/P 141/84 / 1200 B/P Mean 107 / 1200 Pulse 43 / 1200 O2 Delivery Room air 02/06 0850 Temp 97.0 05 0850 Resp 16 02/06 0850Review of Vital Signs ReviewedBasic Physical ExamBasic PE HEAD: Atraumatic/NC, ABD: Soft/non-tender, NEURO: alert oriented,NEURO: gross movement NLFocused PEGeneral/Const General/Const Awake, Alert, No acute distress, Well appearing, Well developed, Well hydrated, Well nourished, Cooperative, Not toxic appearingMS Neck Neck Atraumatic, Supple, No meningismus, Full range of motionResp/Chest Respiratory/Chest Atraumatic, Breath sounds NL, Breath sounds = bilat, Norespiratory distressCardiovascular Cardiovascular Regular rhythm, Heart sounds NL Heart Rate/Rhythm Bradycardia.Interpretation DiagnosticsLab Results InterpretationResultsLaboratory Tests02/07/24 0859:[Embedded Image Not Available]Laboratory Tests: 02/06 02/06 02/06 02/06 1043 0859 0859 0859 Chemistry Sodium (137 - 145 mmol/l) 135 L Potassium (3.5 - 5.1 mmol/l) 5.8 H Chloride (98 - 107 mmol/l) 106 Carbon Dioxide (22 - 30 mmol/l) 20 L BUN (9 - 20 mg/dl) 11 Creatinine (0.66 - 1.25 mg/dl) 1.10 Est GFR (CKD-EPI 2020) (>=60) 88 BUN/Creatinine Ratio ((CALC)) 10 Glucose (74 - 106 mg/dl) 94 Calcium (8.4 - 10.2 mg/dl) 10.0 Total Bilirubin (0.2 - 1.0 mg/dl) 1.4 H AST (17 - 59 U/L) 47 ALT (21 - 72 U/L) 18 L Alkaline Phosphatase (38 - 126 Units/L) 59 Troponin I (<0.034 ng/mL) < 0.012 < 0.034 NT-Pro-B Natriuret Pep (0 - 200 pg/ml) 99.6 Total Protein (6.3 - 8.2 g/dl) 10.7 H Albumin (3.5 - 5.0 g/dl) 5.2 H Globulin (g/dl) 5.5 Albumin/Globulin Ratio 0.9 Coagulation PT (9.9 - 13.3 SECONDS) 11.5 INR (0.86 - 1.14 RATIO) 1.02 APTT (26.2 - 37.2 SECONDS) 27.7 Hematology WBC (3.8 - 10.7 K/cmm) 8.5 RBC (3.92 - 5.83 MIL/mm) 5.45 Hgb (12.0 - 17.5 gm/dl) 16.4 Hct (35.8 - 52.9 %) 48.9 MCV (81.2 - 99.8 fL) 89.6 MCH (26.6 - 34.5 pg) 30.2 MCHC (32.1 - 35.5 %) 33.7 RDW (12.4 - 16.2 %) 13.6 Plt Count (139 - 358 K/cmm) 208 MPV (6.8 - 10.7 fL) 9.1 Neut % (Auto) (%) 57.5 Lymph % (Auto) (%) 31.3 [place] % (Auto) (%) 6.8 Eos % (Auto) (%) 3.3 Baso % (Auto) (%) 1.1 Neut # (Auto) (1.9 - 7.3 K/mm3) 4.9 Lymph # (Auto) (0.9 - 3.8 K/mm3) 2.7 [place] # (Auto) (0.2 - 0.9 K/mm3) 0.6 Eos # (Auto) (0.0 - 0.5 K/mm3) 0.3 Baso # (Auto) (0.0 - 0.1 K/mm3) 0.1Recent Impressions:RADIOLOGY - Chest AP Port 02/06 919 Report Impression - Status: SIGNED Entered: 02/07/2024 0933IMPRESSION:No acute cardiopulmonary process identified.Impression By: TANIYA - TAHIR BOGGS M.D. Lab Imaging StatementLaboratory radiographic studies reviewed and considered in the medicaldecision-making.ECG #1 InterpretationECG Documented in MUSE YesInterpreted by ED physicianRe-Evaluation MDMFree Text MDM NotesFree Text MDM NotesFINDINGS REVIEWED AND DISCUSSED WITH PATIENT. TROP NEGATIVE X2 AND OTHER LABSREASSURRING. PAIN HAS EASED. DISCUSSED ADMISSION VS DISCHARGE WITH PATIENT ANDHE CHOOSES DISCHARGE. STATES HE WILL GO HOME AND WAIT FOR THE STRESS TEST/MONITOR SCHEDULING. WORSENING S/S AND RETURN PRECAUTIONS DISCUSSED. PTVERBALIZED UNDERSTANDING.Re- Evaluation/Progress #1Re-Eval Status Improved, RESTING WITH EYES CLOSED. SPOUSE STATES HAS BEENSLEEPING Chest Pain MDM NoteThe patient is resting comfortably and feels better, is alert and in nodistress. The examination is unremarkable and benign. The electrocardiogramshows no signs of acute ischemia and the history, exam, diagnostic testing andcurrent condition do not suggest that this patient is having an acute myocardialinfarction, significant arrhythmia, unstable angina, esophageal perforation,pulmonary embolism, aortic dissection, pneumothorax, severe pneumonia, sepsis orother significant pathology that would warrant further testing, continued EDtreatment, admission, or cardiology or other specialist consultation at thispoint. The vital signs have been stable. The patient's condition is stable andappropriate for discharge. The patient will pursue further outpatient evaluationwith the primary care physician, other designated physician or lvn. Thepatient and/or caregivers have expressed a clear and thorough understanding andagree to follow up as instructed.ED CourseMedication(s) OrderedMedication(s) Ordered:Central Nervous System Agents Sig/Ivonne Start time Last Medication Dose Route Stop Time Status Admin Aspirin 325 MG X1ED ONE 02/06 0840 DC 02/06 PO 02/06 0841 0858Differential Diagnosis)( Differential Diagnosis Acute coronary syndrome, Acute myocardial infarct,Anxiety disorder, Bronchitis, Chest pain, Congestive heart failure,CostochondritisPatient Discharge DepartureVital Signs/ConditionVital SignsFirst Documented: Result Date Time Pulse Ox 99 02/06 0850 B/P 161/95 02/06 0850 B/P Mean 117 02/06 0850 O2 Delivery Room air 02/06 0850 Temp 97.0 02/06 0850 Pulse 47 02/06 0850 Resp 16 02/06 0850Last Documented: Result Date Time Pulse Ox 97 02/06 1200 B/P 141/84 02/06 1200 B/P Mean 107 02/06 1200 Pulse 43 02/06 1200 O2 Delivery Room air 02/06 0850 Temp 97.0 02/06 0850 Resp 16 02/06 0850All vital signs available at the time of this entry have been reviewed.Condition StableClinical ImpressionClinical ImpressionPrimary Impression: Chest painRuled Out Impressions: Elevated troponinDisposition DecisionDischarge )( Discharged to Home Yes )( Time 1218 )( Date 02/07/24Discharge/Care PlanCounseled Regarding Diagnosis, Lab results, Imaging studies, Need for follow-up,When to return to ED(Auto) PrescriptionsCurrent Visit ScriptsNo Known Home MedicationsPatient Instructions ED Chest Pain, Uncertain CauseDeparture FormsSCHOOL/WORK EXCUSE Discharge NoteI have spoken with the patient and/or caregivers. I have explained the patient'scondition, diagnoses and treatment plan based on the information available to meat this time. I have answered the patient's and/or caregiver's questions andaddressed any concerns. The patient and/or caregivers have as good anunderstanding of the patient's diagnosis, condition and treatment plan as can beexpected at this point. The vital signs have been stable. The patient'scondition is stable and appropriate for discharge from the emergency department.The patient will pursue further outpatient evaluation with the primary carephysician or other designated or consulting physician as outlined in thedischarge instructions. The patient and/or caregivers are agreeable to this planof care and follow-up instructions have been explained in detail. The patientand/or caregivers have received these instructions in written format and haveexpressed an understanding of the discharge instructions. The patient and/orcaregivers are aware that any significant change in condition or worsening ofsymptoms should prompt an immediate return to this or the closest emergencydepartment or a call to 911.JASMYN MICHELE 02/07/24 1617:Patient Discharge DepartureDischarge/Care PlanReferralsProvider Referral: Veronica Marrero CASTING TESTER Address: [address] [place], [place] [address]Supervising Physician Note MidLv Saw Pt AloneI have reviewed the PA/CASTING TESTER's note and plan of care. I was available forconsultation as needed at all times during the patient's visit in the emergencydepartment. at 1235 at 6937RPT #: [id number] OF REPORT Emergency Encounter Reason:CHEST PAIN Encounter Diagnosis:Bradycardia, unspecified,Abnormal electrocardiogram [ECG] [EKG],Nicotine dependence, unspecified, uncomplicated,Other chest pain 28-Jan-2024 07:[id number] 11:42 [facility] Discharge Disposition:Discharged to home or self care (routine discharge) ? ? ? Loki Adams [id number] [facility] ([facility])EMERGENCY PROVIDER REPORTREPORT#:[id number] REPORT STATUS: SignedDATE:01/28/24 TIME: 0802PATIENT: CLARIBEL BRAND UNIT #: [id number]#: [id number] ROOM/BED:AGE: 38 SEX: M PCP PHYS: No Primary or Family PhysicianSERVICE AUTHOR: Bryan Mcghee NPREP SRV REP SRV TM: 0734* ALL edits or amendments must be made on the electronic/computer document *BRYAN MCGHEE NP 01/28/24 0802:HPI-Chest Pain Under 40GeneralConfirmed Patient YesPatient Type New patientInitial Greet Date/Time 01/28/24 0734PresentationChief Complaint Patient is a 38-year-old male, who presents to the emergencydepartment complaining of left-sided chest pain. Patient reports onset woke himup at 04:30 this morning. He denies any shortness of breath, nausea, vomiting,diaphoresis. Denies dizziness. Reports history of intermittent chest pain overthe last couple years. Patient does report he is heavy smoker.)( Migration/Movement NoneRisk-Chest Pain Under 40Risk Stratification)( Coronary Artery Disease Risk factors reviewedThoracic Aortic Dissection Risk factors reviewed)( Pulmonary Embolism Risk factors reviewed)( AMI-Aspirin Aspirin Last 24 Hrs 325 mg, On arrival)( HEART for MACE )( HEART for MACE Response Value History Low index of suspicion 0 ECG Interpretation Normal ECG 0 Age Age under 45 0 Risk Factors for CAD 1-2 CAD risk factors 1 Troponin < or = to NL troponin 0 Total 1HEART Score for MACE 0-3 (low risk 0.9%-1.7%)Review of SystemsROS StatementsAll systems rev neg except as marked.Basic Review of SystemsBasic ROS EYES: No rednessFocused Review of SystemsConstitutionalDenies: Chills, Fatigue, Fever.CardiovascularReports: Chest pain. Denies: Palpitations, Syncope.GIDenies: Abdominal pain, Nausea, Vomiting.NeurologicDenies: Dizziness, Headache, Lightheaded.Past Medical History - AdultStated Complaint CHEST PAINAllergiesCoded Allergies:No Known Allergies (01/28/24)Review of Nursing Notes Rev avail, and agreeSmoking status for patients 13 years old or older: Current every day smokerPhysical ExamVital SignsVital SignsFirst Documented: Result Date Time Pulse Ox 99 01/27 0746 B/P 154/95 01/27 0746 B/P Mean 114 01/27 0746 O2 Delivery Room air 01/27 746 Temp 37.0 01/27 746 Pulse 51 01/27 07 Resp 18 01/27 0746Last Documented: Result Date Time Pulse 39 01/27 1051 Pulse Ox 100 01/27 0752 B/P 154/95 01/27 0746 B/P Mean 114 01/27 746 O2 Delivery Room air 01/27 746 Temp 37.0 01/27 746 Resp 18 01/27 746Review of Vital Signs ReviewedBasic Physical ExamBasic PE HEAD: Atraumatic/NC, EYES: PERRL, conj clear, ABD: Soft/non-tender,SKIN: No rashes, warm/dry, NEURO: alert oriented, NEURO: gross movement NL,PSYCH: NL thought contentFocused PEGeneral/Const General/Const Awake, Alert, No acute distress, Well appearing, Well developed, Well hydrated, Well nourished, Cooperative, Not toxic appearingResp/Chest Respiratory/Chest Breath sounds NL, Breath sounds = bilat, No respiratorydistress, No rhonchi, No wheezing, No retractionsCardiovascular Cardiovascular Heart rate NL, Regular rhythm, Heart sounds NL, Cap refill notdelayed, Peripheral circulation NLInterpretation DiagnosticsLab Results InterpretationResultsLaboratory Tests01/28/24 0746:[Embedded Image Not Available]Laboratory Tests: 01/27 01/27 01/27 01/27 1017 0942 0746 0746Chemistry Sodium (137 - 145 mmol/l) 137 Potassium (3.5 - 5.1 mmol/l) 4.9 Chloride (98 - 107 mmol/l) 112 H Carbon Dioxide (22 - 30 mmol/l) 19 L BUN (9 - 20 mg/dl) 12 Creatinine (0.66 - 1.25 mg/dl) 1.00 Est GFR (CKD-EPI 2020) (>=60) 98 BUN/Creatinine Ratio ((CALC)) 12 Glucose (74 - 106 mg/dl) 123 H Calcium (8.4 - 10.2 mg/dl) 9.7 Total Bilirubin (0.2 - 1.0 mg/dl) 0.8 AST (17 - 59 U/L) 32 ALT (21 - 72 U/L) 18 L Alkaline Phosphatase (38 - 126 Units/L) 51 Troponin I (<0.034 ng/mL) < 0.012 < 0.012 Total Protein (6.3 - 8.2 g/dl) 8.9 H Albumin (3.5 - 5.0 g/dl) 4.6 Globulin (g/dl) 4.3 Albumin/Globulin Ratio 1.1Coagulation PT (9.9 - 13.3 SECONDS) 11.2 INR (0.86 - 1.14 RATIO) 0.99 APTT (26.2 - 37.2 SECONDS) 31.0Hematology WBC (3.8 - 10.7 K/cmm) 8.4 RBC (3.92 - 5.83 MIL/mm) 5.05 Hgb (12.0 - 17.5 gm/dl) 15.6 Hct (35.8 - 52.9 %) 44.3 MCV (81.2 - 99.8 fL) 87.7 MCH (26.6 - 34.5 pg) 30.9 MCHC (32.1 - 35.5 %) 35.3 RDW (12.4 - 16.2 %) 13.5 Plt Count (139 - 358 K/cmm) 228 MPV (6.8 - 10.7 fL) 8.9 Neut % (Auto) (%) 53.5 Lymph % (Auto) (%) 33.9 Amador % (Auto) (%) 7.5 Eos % (Auto) (%) 4.0 Baso % (Auto) (%) 1.1 Neut # (Auto) (1.9 - 7.3 K/mm3) 4.5 Lymph # (Auto) (0.9 - 3.8 K/mm3) 2.8 [place] # (Auto) (0.2 - 0.9 K/mm3) 0.6 Eos # (Auto) (0.0 - 0.5 K/mm3) 0.3 Baso # (Auto) (0.0 - 0.1 K/mm3) 0.1Toxicology Urine Opiates Screen (NEGATIVE) NEGATIVE Ur Barbiturates Screen (NEGATIVE) NEGATIVE Ur Phencyclidine Scrn (NEGATIVE) NEGATIVE Ur Amphetamine Screen (NEGATIVE) NEGATIVE U Benzodiazepines Scrn (NEGATIVE) NEGATIVE Urine Cocaine Screen (NEGATIVE ng/ml) NEGATIVE U Cannabinoids Screen (NEGATIVE) POSITIVEUrines Urine Color (YELLOW) STRAW Urine Appearance (CLEAR) CLEAR Urine pH (5.0 - 8.5) 7.0 Ur Specific [place] (1.001 - 1.035) 1.012 Urine Protein (NEGATIVE MG/DL) NEGATIVE Urine Ketones (NEGATIVE MG/DL) NEGATIVE Urine Blood (NEGATIVE) NEGATIVE Urine Nitrite (NEGATIVE) NEGATIVE Urine Bilirubin (NEGATIVE MG/DL) NEGATIVE Urine Urobilinogen (NEGATIVE MG/DL) NEGATIVE Ur Leukocyte Esterase (NEGATIVE) NEGATIVE Urine Glucose (NEGATIVE MG/DL) NEGATIVERecent Impressions:RADIOLOGY - Chest AP Port 01/27 805 Report Impression - Status: SIGNED Entered: 01/28/2024 0837IMPRESSION:No acute cardiopulmonary process identified.Impression By: TANIYA - TAHIR BOGGS M.D. Lab Imaging StatementLaboratory radiographic studies reviewed and considered in the medicaldecision-making.Re-Evaluation MDMRe-Evaluation/Progress #1Text/Dict NotePatient presents with chest pain. Troponins negative x2, other labsunremarkable. Patient has been somewhat bradycardic while in the ED today.Patient reports his chest pain has resolved. Attempted admission to hospital,however patient refused. Patient was made aware to return to ED with anyworsening or concerning symptoms. Patient voices understanding. Patient silvanaalso made an appointment with the assistant professor of german to follow-up on Wednesday.Patient agrees with plan.Time of Re-Eval 1125Re-Eval Status ResolvedED CourseMedication(s) OrderedMedication(s) Ordered:Central Nervous System Agents Sig/Ivonne Start time Last Medication Dose Route Stop Time Status Admin Aspirin 325 MG X1ED ONE 01/27 0745 DC 01/27 PO 01/27 0746 0803Electrolytic, Caloric, And Joanne Sig/Ivonne Start time Last Medication Dose Route Stop Time Status Admin Sodium Chloride 1,000 ML BOLUS ONE 01/28 0815 DC 01/27 IV 01/27 0914 0937ConsultationConsultation Referral/Consult Name Veronica Marrero CASTING TESTER Top Polisher Called Spray Painting Machine Operator Discussed with loan consultant Requested Call Time 112 Requested Call Date 01/28/24 Call Returned Call returned Call Returned Time 112 Call Returned Date 01/28/24 Free Text Consult NotesTo see patient in office at 09:00 Wednesday.Differential Diagnosis)( Differential Diagnosis Acute coronary syndrome, Acute myocardial infarct,Chest pain, Costochondritis, Myocardial infarction, Pleurisy, Pneumonia,Pneumothorax, Pulmonary edemaPatient Discharge DepartureVital Signs/ConditionVital SignsFirst Documented: Result Date Time Pulse Ox 99 01/27 0746 B/P 154/95 / 0746 B/P Mean 114 01/27 0746 O2 Delivery Room air 01/27 0746 Temp 37.0 01/27 0746 Pulse 51 01/27 0746 Resp 18 01/27 0746Last Documented: Result Date Time Pulse 39 01/27 1051 Pulse Ox 100 / 0752 B/P 154/95 01/27 0746 B/P Mean 114 01/27 0746 O2 Delivery Room air 01/27 0746 Temp 37.0 01/27 0746 Resp 18 01/27 0746All vital signs available at the time of this entry have been reviewed.Condition StableClinical ImpressionClinical ImpressionPrimary Impression: Chest painSecondary Impressions: BradycardiaDisposition DecisionDischarge )( Discharged to Home Yes )( Time 1125 )( Date 01/28/24Discharge/Care PlanCounseled Regarding Diagnosis, Lab results, Imaging studies, Need for follow-up,When to return to EDPatient Instructions ED Bradycardia, ED Chest Pain, Uncertain CauseAdditional InstructionsFollow up with Veronica Marrero on Wednesday at the assistant professor of german office at09:00. Return to ED with any worsening or concerning symptoms. Discharge NoteI have spoken with the patient and/or caregivers. I have explained the patient'scondition, diagnoses and treatment plan based on the information available to meat this time. I have answered the patient's and/or caregiver's questions andaddressed any concerns. The patient and/or caregivers have as good anunderstanding of the patient's diagnosis, condition and treatment plan as can beexpected at this point. The vital signs have been stable. The patient'scondition is stable and appropriate for discharge from the emergency department.The patient will pursue further outpatient evaluation with the primary carephysician or other designated or consulting physician as outlined in thedischarge instructions. The patient and/or caregivers are agreeable to this planof care and follow-up instructions have been explained in detail. The patientand/or caregivers have received these instructions in written format and haveexpressed an understanding of the discharge instructions. The patient and/orcaregivers are aware that any significant change in condition or worsening ofsymptoms should prompt an immediate return to this or the closest emergencydepartment or a call to 1.JIN HALE 01/28/24 1127:Patient Discharge DepartureDischarge/Care PlanReferralsProvider Referral: Veronica Marrero NP Follow-Up: As Directed Address: [address] [place] [address] at 1126 at 1127RPT #: [id number] OF REPORT Plan of Treatment Future Tests Future scheduled test information is unavailable Pending Tests Pending diagnostic test information is unavailable Future Visits Future appointment information is unavailable Referrals to Other Providers Reason for Referral Referral Start Date Provider Provider Contact Information Provider Address Veronica Marrero NP Work Phone: [phone] [phone] Veronica Marrero NP Work Phone: [phone] [facility] [phone] Veronica Marrero NP Work Phone: [phone] [phone] Future Procedures Future procedure information is unavailable Future Medications Future medication information is unavailable Patient Instructions ED Particle in the Eye ED Chest Pain, Uncertain Cau se ED Bradycardia ED Chest Pain, Uncertain Cau se Assessments Diagnosis Onset Date Resolution Status Foreign body of right eye Ac tive
[2024-09-26 09:32] VITALS: BP 135/82; PULSE 58; RESP 18; O2SAT 98
[2024-09-26] MEDS: iohexoL 350 MG/ML 100 ML INFUS..BTL IV (09:55)
[2024-09-26 10:59] LABS: Troponin-I High Sensitivity < 2.7 ng/L (<3.5-35.0)
[2024-09-26 13:07] VITALS: BP 135/82; PULSE 58; RESP 18; TEMP 36.9; O2SAT 98
== END 2024-09-26 13:08 | disposition home or self-care (01) ==
PROVIDERS: Emergency Provider Emergency Medicine
DX: R07.89 Other chest pain (principal); F12.90 Cannabis use, unspecified, uncomplicated; Z79.899 Other long term (current) drug therapy; F17.210 Nicotine dependence, cigarettes, uncomplicated
CPT/HCPCS: 36415; 71275; 80053; 84484; 85025; 93005; 96374; 99284; 99285; J3010; Q9967

== ENCOUNTER → 2024-09-26 07:30 | Outpatient (BNV) | payer SELFPAY | PROVIDERS: Emergency Provider Emergency Medicine; Visit Provider Internal Medicine Cardiovascular Disease | DX: R94.31 Abnormal electrocardiogram [ECG] [EKG] (principal) | CPT/HCPCS: 93010 ==

== ENCOUNTER → 2024-09-26 08:12 | Outpatient (BNV) | payer SELFPAY | PROVIDERS: Emergency Provider Emergency Medicine; Visit Provider Radiology Diagnostic Radiology | DX: R07.9 Chest pain, unspecified (principal) | CPT/HCPCS: 71275 ==